=== PATIENT | female | born 1980 | race Caucasian/White ===

== ENCOUNTER 2021-02-10 09:39 | Emergency (ER) | payer BC ==
[2021-02-10 10:31] LABS: Protime INR 0.86
[2021-02-10 10:33] LABS: Absolute Lymphocytes (CBC) 2.5 K/uL (0.7-4.9); Basophils % 0.4 % (0-1.3); Hematocrit 39.6 % (36.0-45.0); Lymphocytes % 35.9 % (15.3-44.8); MPV 7.5 fL (7.6-11.3); RBC Red Blood Cell Count 4.14 M/uL (3.86-4.86)
[2021-02-10 10:47] LABS: ALT/SGPT 19 U/L (12-78); AST/SGOT 10 U/L (15-37); Albumin 3.9 g/dL (3.4-5.0); Alkaline Phosphatase 70 U/L (45-117); BUN Blood Urea Nitrogen 17 mg/dL (7-18); Bicarbonate 26 mmol/L (21-32); Bilirubin Direct < 0.1 mg/dL (0-0.2); Bilirubin Total 0.2 mg/dL (0.2-1.0); Glucose Level 138 mg/dL (74-106); Magnesium 2.2 mg/dL (1.8-2.4); NT PRO-BNP 91 pg/mL (<125); Potassium 3.9 mmol/L (3.5-5.1); Sodium Level 135 mmol/L (136-145); Troponin (Emerg Dept Use Only) < 0.02 ng/mL (0.0-0.045)
--- NOTE | 2021-02-10 11:03 | RAD REPORT ---
EXAM DESCRIPTION: RAD - Chest Single View - 02/10/2021 10:33 am CLINICAL HISTORY: PALPITATIONS COMPARISON: None TECHNIQUE: AP portable chest image was obtained 02/10/2021 10:33 am . FINDINGS: Lungs are clear. Heart and vasculature are normal. No measurable pleural effusion and no p neumothorax. No acute bony abnormality seen. No acute aortic findings suspected. IMPRESSION: No acute cardiopulmonary process.
--- NOTE | 2021-02-10 11:42 | ER ---
Nurse's Notes [facility] Name: Jojo Christian Age: 40 yrs Sex: Female : 1980 Arrival Date: 02/10/2021 Time: 09:42 Bed 19 Private MD: Flora Elliott Diagnosis: Palpitations Presentation: 02/10 10:01 Chief complaint: Patient states: "heart pounding" that began 1 week ago after first ss COVID vaccination. Pt reports she had an outpatient EKG yesterday at this hospital, but they wouldn't have the results until this morning. 10:01 Coronavirus screen: Client denies travel out of the [place] in the last 14 days. Ebola ss Screen: Patient denies exposure to infectious person. Patient denies travel to an Ebola-affected area in the 21 days before illness onset. Initial Sepsis Screen: Does the patient meet any 2 criteria? No. Patient's initial sepsis screen is negative. Does the patient have a suspected source of infection? No. Patient's initial sepsis screen is negative. Risk Assessment: Do you want to hurt yourself or someone else? Patient reports no desire to harm self or others. Onset of symptoms was February 03, 2021. 10:01 Method Of Arrival: Ambulatory ss 10:01 Acuity: REBEKA 3 ss Historical: - Allergies: 10:19 Levaquin; ss 10:19 Sulfa (Sulfonamide Antibiotics); ss - Home Meds: 10:19 control [Active]; Acyclovir Oral [Active]; ss - PMHx: 10:19 mitral valve prolapse; ulcerative colitis; migraines; ss - PSHx: 10:19 None; ss - Immunization history:: Adult Immunizations up to date. - Social history:: Smoking status: Patient denies any tobacco usage or history of. Screenin:16 Abuse screen: Denies threats or abuse. Nutritional screening: No deficits noted. vg1 Tuberculosis screening: No symptoms or risk factors identified. Fall Risk No fall in past 12 months (0 pts). No secondary diagnosis (0 pts). IV access (20 points). Ambulatory Aid- None/Bed Rest/Nurse Assist (0 pts). Gait- Normal/Bed Rest/Wheelchair (0 pts) Mental Status- Oriented to own ability (0 pts). Total Augustin Fall Scale indicates No Risk (0-24 pts). Assessment: 10:08 General: Appears in no apparent distress. comfortable, Behavior is calm, cooperative. vg1 Pain: Denies pain. Neuro: Level of Consciousness is awake, alert, obeys commands, Oriented to person, place, time, situation. Cardiovascular: Patient's skin is warm and dry. Respiratory: Airway is patent Respiratory effort is even, unlabored. GI: Abdomen is flat, non-distended, Reports nausea. : No signs and/or symptoms were reported regarding the genitourinary system. EENT: No signs and/or symptoms were reported regarding the EENT system. Derm: Skin is intact, is healthy with good turgor. Musculoskeletal: Circulation, motion, and sensation intact. 11:18 Reassessment: Patient appears in no apparent distress at this time. No changes from vg1 previously documented assessment. Patient and/or family updated on plan of care and expected duration. Pain level reassessed. Patient is alert, oriented x 3, equal unlabored respirations, skin warm/dry/pink. 12:21 Reassessment: Patient appears in no apparent distress at this time. No changes from vg1 previously documented assessment. Patient and/or family updated on plan of care and expected duration. Pain level reassessed. Patient is alert, oriented x 3, equal unlabored respirations, skin warm/dry/pink. Vital Signs: 10:01 BP 120 / 71; Pulse 85; Resp 18; Temp 98.3(TE); Pulse Ox 100% on R/A; Weight 59.87 kg; ss Height 5 ft. 9 in. (175.26 cm); Pain 0/10; 11:00 BP 111 / 69; Pulse 75; Resp 14; Pulse Ox 100% on R/A; vg1 10:01 Body Mass Index 19.49 (59.87 kg, 175.26 cm) ED Course: 09:42 Patient arrived in ED. mr 09:42 Flora Elliott is Private Physician. mr 09:48 Mary Pop FNP-C [facility]. kb 09:48 Neo Cerda MD is Attending Physician. kb 09:56 Karen Hoffman, RN is Primary Nurse. vg1 10:10 Patient has correct armband on for positive identification. Placed in gown. Bed in low vg1 position. Call light in reach. Side rails up X 1. 10:14 Initial lab(s) drawn, by in, sent to lab. Inserted saline lock: 20 gauge in left vg1 antecubital area, using aseptic technique. Blood collected. 10:17 EKG done, by ED staff, reviewed by Mary SMITH. dh3 10:17 Arm band placed on. vg1 10:18 Triage completed. ss 10:33 XRAY Chest (1 view) In Process Unspecified. EDMS 11:41 Dirk Huff MD is Referral Physician. kb 12:22 No provider procedures requiring assistance completed. IV discontinued, intact, vg1 bleeding controlled, No redness/swelling at site. Pressure dressing applied. Administered Medications: No medications were administered Outcome: 11:41 Discharge ordered by . kb 12:22 Discharged to home ambulatory. vg1 12:22 Condition: stable 12:22 Discharge instructions given to patient, Instructed on discharge instructions, follow up and referral plans. Demonstrated understanding of instructions, follow-up care. 12:23 Patient left the ED. vg1 Signatures: Dispatcher [employer] EDAL Mary Pop, AUTOMATIC SCREWMAKER-C AUTOMATIC SCREWMAKER-Coral Howard mr Wendy Rivers, RN RN Lindsey Poolenna formerly [facility] Karen Hoffman, RN RN vg1
--- NOTE | 2021-02-10 11:42 | EDPHYS ---
Physician Documentation [facility] Name: Jojo Christian Age: 40 yrs Sex: Female : 1980 Arrival Date: 02/10/2021 Time: 09:42 Bed 19 Private MD: Flora Elliott ED Physician Neo Cerda HPI: 02/10 13:41 This 40 yrs old Female presents to ER via Ambulatory with complaints of Heart kb Racing, Nausea. 13:41 The patient presents with a history of heart racing. Context: The symptoms occur at kb rest. Onset: The symptoms/episode began/occurred 1 week(s) ago. Duration: The patient or guardian reports a single episode, that is still ongoing. Modifying factors: The symptoms are aggravated by nothing. The symptoms are alleviated by nothing. Associated signs and symptoms: Pertinent positives: nausea, Pertinent negatives: SOB. Severity of symptoms: At their worst the symptoms were moderate in the emergency department the symptoms are unchanged. The patient has not experienced similar symptoms in the past. The patient has been recently seen by a physician:. Pt reports her heart has been racing all week, started after first covid shot last Tuesday. States now she is just feeling her heart pounding. . Historical: - Allergies: 10:19 Levaquin; ss 10:19 Sulfa (Sulfonamide Antibiotics); ss - Home Meds: 10:19 control [Active]; Acyclovir Oral [Active]; ss - PMHx: 10:19 mitral valve prolapse; ulcerative colitis; migraines; ss - PSHx: 10:19 None; ss - Immunization history:: Adult Immunizations up to date. - Social history:: Smoking status: Patient denies any tobacco usage or history of. ROS: 13:41 Constitutional: Negative for fever, chills, and weight loss, Respiratory: Negative for kb shortness of breath, cough, wheezing, and pleuritic chest pain, MS/Extremity: Negative for injury and deformity, Skin: Negative for injury, rash, and discoloration, Neuro: Negative for headache, weakness, numbness, tingling, and seizure, Psych: Negative for depression, anxiety, suicide ideation, homicidal ideation, and hallucinations. 13:41 Cardiovascular: Positive for palpitations, Negative for chest pain, edema, orthopnea, paroxysmal nocturnal dyspnea. 13:41 Abdomen/GI: Positive for nausea, Negative for abdominal pain, vomiting, diarrhea. Exam: 10:18 Constitutional: This is a well developed, well nourished patient who is awake, alert, kb and in no acute distress. Head/Face: Normocephalic, atraumatic. ENT: Moist Mucous membranes Cardiovascular: Regular rate and rhythm with a normal S1 and S2. No gallops, murmurs, or rubs. No pulse deficits. Respiratory: Respirations even and unlabored. No increased work of breathing, no retractions or nasal flaring. Abdomen/GI: Soft, non-tender. No distention Skin: Warm, dry with normal turgor. Normal color. MS/ Extremity: Pulses equal, no cyanosis. Neurovascular intact. Full, normal range of motion. Neuro: Awake and alert, GCS 15, oriented to person, place, time, and situation. Moves all extremities. Normal gait. Psych: Awake, alert, with orientation to person, place and time. Behavior, mood, and affect are within normal limits. 10:18 ECG was reviewed by the Attending Physician. Vital Signs: 10:01 BP 120 / 71; Pulse 85; Resp 18; Temp 98.3(TE); Pulse Ox 100% on R/A; Weight 59.87 kg; ss Height 5 ft. 9 in. (175.26 cm); Pain 0/10; 11:00 BP 111 / 69; Pulse 75; Resp 14; Pulse Ox 100% on R/A; vg1 10:01 Body Mass Index 19.49 (59.87 kg, 175.26 cm) ss MDM: 09:48 Patient medically screened. kb 11:41 Data reviewed: vital signs, nurses notes. Data reviewed: I have discussed the patient's kb presentation/case with the attending Emergency Department Physician;. Data interpreted: bus driver/monitor: rate is 80 beats/min, rhythm is normal sinus rhythm, Pulse oximetry: on room air is 100 %. Interpretation: normal. Counseling: I had a detailed discussion with the patient and/or guardian regarding: the historical points, exam findings, and any diagnostic results supporting the discharge/admit diagnosis, lab results, radiology results, the need for outpatient follow up, a infrastructure technician, to return to the emergency department if symptoms worsen or persist or if there are any questions or concerns that arise at home. 02/10 09:51 Order name: Basic Metabolic Panel; Complete Time: 10:57 kb 02/10 09:51 Order name: CBC with Diff; Complete Time: 10:57 kb 02/10 09:51 Order name: LFT's; Complete Time: 10:57 kb 02/10 09:51 Order name: Magnesium; Complete Time: 10:57 kb 02/10 09:51 Order name: NT PRO-BNP; Complete Time: 10:57 kb 02/10 09:51 Order name: PT-INR; Complete Time: 10:57 kb 02/10 09:51 Order name: Troponin (emerg Dept Use Only); Complete Time: 10:57 kb 02/10 09:51 Order name: XRAY Chest (1 view); Complete Time: 11:08 kb 02/10 09:51 Order name: EKG; Complete Time: 09:52 kb 02/10 09:51 Order name: Cardiac monitoring; Complete Time: 10:14 kb 02/10 09:51 Order name: EKG - Nurse/Tech; Complete Time: 10:14 kb 02/10 09:51 Order name: IV Saline Lock; Complete Time: 10:14 kb 02/10 09:51 Order name: Labs collected and sent; Complete Time: 10:14 kb 02/10 09:51 Order name: TSH; Complete Time: 10:57 kb 02/10 09:51 Order name: O2 Per Protocol; Complete Time: 09:57 kb 02/10 09:51 Order name: O2 Sat Monitoring; Complete Time: 09:57 kb EC:18 Rate is 88 beats/min. Rhythm is regular. QRS [place] is Normal. VA interval is normal at kb 120 msec. QRS interval is normal at 68 msec. QT interval is normal at 346 msec. Administered Medications: No medications were administered Disposition: 16:19 Co-signature as Attending Physician, Neo Cerda MD. rn Disposition Summary: 02/10/21 11:41 Discharge Ordered Location: Home kb Condition: Stable kb Diagnosis - Palpitations kb Followup: kb - With: Emergency Department - When: As needed - Reason: Worsening of condition Followup: kb - With: Dirk Huff MD - When: 1 - 2 days - Reason: Recheck today's complaints Discharge Instructions: - Discharge Summary Sheet kb - Palpitations, Pulw-fl-Ruii kb Forms: - Medication Reconciliation Form kb - Thank You Letter kb - Antibiotic Education kb - Prescription Opioid Use kb Signatures: Dispatcher [employer] Mary Carlos, ROEL-C ROEL-Neo Pepe MD MD rn Smirch, Shelby, RN RN ss
[2021-02-10 12:31] VITALS: TEMP 98.3; O2SAT 100
[2021-02-10 12:32] VITALS: BP 111/69
--- NOTE | 2021-02-11 16:37 | EKG ---
Test Date: 2021-02-10 Test Time: 10:13:45 Aerographer: PIPER MEASUREMENT RESULTS: Intervals: Rate: 88 MS: 120 QRSD: 68 QT: 346 QTc: 418 [place]: P: 76 MS: 120 QRS: 59 T: 89 INTERPRETIVE STATEMENTS: Normal sinus rhythm Nonspecific ST and T wave abnormality Abnormal ECG Compared to ECG 02/09/2021 14:46:15 No significant changes Electronically Signed On 02-11-21 16:33:20 CDT by Dirk Huff
--- NOTE | 2021-02-11 16:37 | EKG ---
Test Date: 2021-02-10 Test Time: 10:23:21 Women'S Basketball Coach: PIPER MEASUREMENT RESULTS: Intervals: Rate: 76 MS: 118 QRSD: 76 QT: 380 QTc: 427 [place]: P: 68 MS: 118 QRS: 55 T: 68 INTERPRETIVE STATEMENTS: Normal sinus rhythm Possible Left atrial enlargement Borderline ECG Compared to ECG 02/10/2021 10:13:45 ST (T wave) deviation no longer present Electronically Signed On 02-11-21 16:33:19 CDT by Dirk Huff
== END 2021-02-10 12:23 | disposition home or self-care (01) ==
LOC: ER 09:39
DX: R00.2 Palpitations (principal); R11.0 Nausea; Z88.1 Allergy status to other antibiotic agents; Z88.2 Allergy status to sulfonamides
CPT/HCPCS: 36415; 71045; 80048; 80076; 83735; 83880; 84443; 84484; 85025; 85610; 93005; 99284